=== PATIENT | female | born 2000 | race Caucasian/White ===

== ENCOUNTER 2024-05-15 09:25 | Inpatient (IN) | payer MEDICAID, SELFPAY ==
[2024-05-15] VITALS (19 sets, daily range): BP systolic 109–134; BP diastolic 64–89; PULSE 69–111; RESP 16; TEMP 35.8–36.6; O2SAT 97; BMI 29.7
[2024-05-15] MEDS: Lactated Ringers 1,000 ML 50 ML IV (09:30)
[2024-05-15 09:53] LABS: Absolute Lymphocyte Count 1.98 X10^3/uL (0.83-4.51); Absolute Neutrophil Count 8.1 X10^3/uL (2.0-7.7); Basophil# 0.03 X10^3/uL; Basophil% 0.3 % (0-1); Eosinophil# 0.03 X10^3/uL; Eosinophils% 0.3 % (0-5); Hematocrit 32.8 % (37-47); Lymphocyte # 1.98 X10^3/ul (0.83-4.51); Lymphocyte % 18.5 % (19-41); Mean Corp Hgb Conc 33.5 g/dL (32-36); Mean Corpuscular Hgb 27.8 pg (27.0-32.0); Mean Platelet Vol. 10.4 fl (6.2-12.0); Monocyte# 0.48 X10^3/uL; Monocyte% 4.5 % (0-10); NRBC Flagged by Analyzer 0 % (0-5); Neutrophil % 75.4 % (47-70); Platelet Count 278 K/mm3 (150-450); RBC Distribution Width CV 13.3 % (11.6-14.6); RBC Distribution Width SD 40.1 fl (35.1-43.9); Red Blood Count 3.95 M/mm3 (4.2-5.4); White Blood Count 10.7 K/mm3 (4.4-11.0)
[2024-05-15 10:46] LABS: Syphilis Antibodies Nonreactive (Nonreactive)
[2024-05-15] MEDS: Oxytocin 15 Units/NS 250ml 15 UNITS/250 ML IV.SOLN 2 UNITS IV (10:55)
[2024-05-15] MEDS: miSOPROStol 25 MCG TABLET PO ×2 (14:32→18:42)
--- NOTE | 2024-05-15 17:55 | PCM.HP.OB ---
HPI - General General Date of Admission: 05/15/24 Date of Service: 05/15/24 Chief Complaint: elective IOL HPI Narrative RASHAD MAGAÑA, is a 24 F who presents for an elective IOL. She offers no complaints. [facility] Medical History (Updated 05/15/24 @ 17:[address] Ofelia Cueva DO) Depression Anxiety Home Medications ?Medication ?Instructions ?Recorded ?Last Taken ?Type docosahexaenoic acid 200 mg 200 mg PO DAILY 05/15/24 05/13/24 History capsule ( DHA) Allergy/AdvReac Type Severity Reaction Status Date / Time No Known Allergies Allergy Verified 05/15/24 09:25 Surgical History (Updated 05/15/24 @ 10:02 by Joanna Schwarz) History of surgery Social History Smoking Status: Never smoker History Elective abortions Hx Para 0 Spontaneous abortions Hx # Term Pregnancies Ectopic pregnancies Hx # Pregnancies Multiple births # of living children NST FHR Rate Baby A Baseline: 130 Variability:: Moderate Accelerations:: 15 x 15 Decelerations:: None NST Reactive:: Yes Vital Signs Vital Signs Vital Signs: 05/15/24 08:20 05/15/24 08:20 05/15/24 08:20 Temperature 97.3 F L Temperature Source Tympanic Pulse Rate Respiratory Rate 16 Blood Pressure BP Systolic BP Diastolic Pulse Ox 05/15/24 08:22 05/15/24 08:22 05/15/24 08:23 Temperature Temperature Source Pulse Rate 96 94 Respiratory Rate Blood Pressure 111/74 BP Systolic 111 BP Diastolic 74 Pulse Ox 05/15/24 08:23 05/15/24 15:16 05/15/24 15:16 Temperature Temperature Source Pulse Rate 83 Respiratory Rate Blood Pressure 120/75 BP Systolic 120 BP Diastolic 75 Pulse Ox 97 05/15/24 15:17 05/15/24 15:17 05/15/24 15:17 Temperature 96.8 F L Temperature Source Temporal Pulse Rate Respiratory Rate 16 Blood Pressure BP Systolic BP Diastolic Pulse Ox 05/15/24 17:35 05/15/24 17:35 05/15/24 17:35 Temperature 96.5 F L Temperature Source Temporal Pulse Rate Respiratory Rate 16 Blood Pressure BP Systolic BP Diastolic Pulse Ox 05/15/24 17:36 05/15/24 17:36 Temperature Temperature Source Pulse Rate 69 Respiratory Rate Blood Pressure 119/70 BP Systolic 119 BP Diastolic 70 Pulse Ox Weight Weight: 168 lb Body Mass Index (BMI) 29.7 Labs Labs Labs: Blood Type A POSITIVE Antibody Screen NEGATIVE Hct 32.8 % (37-47) L Hgb 11.0 g/dL (12.0-15.0) L Syphilis Total Ab Nonreactive (Nonreactive) Assessment & Plan (1) 40 weeks gestation of : (2) Elective induction of labor planned: PLAN: Patient requests an elective IOL. Cervix 1/t/h, vertex on admission. Patient declines intracervical davenport. Cytotec 25 mcg PO q 4 hours ordered. Pitocin gtt 4 hours after second dose of Cytotec. Pelvis adequate and EFW < 4500 grams. Routine intrapartum care. Epidural PRN pain.
[2024-05-15] MEDS: Lactated Ringers 1,000 ML 200 ML IV (22:15)
[2024-05-15] MEDS: fentaNYL-bupivacaine (epidural) 100 ML BAG EPIDURAL (23:30)
[2024-05-16] VITALS (40 sets, daily range): BP systolic 92–141; BP diastolic 52–91; PULSE 65–182; RESP 15–18; TEMP 36–36.7; O2SAT 96–100
[2024-05-16] MEDS: Oxytocin 15 Units/NS 250ml 15 UNITS/250 ML IV.SOLN 2 UNITS IV (00:21)
[2024-05-16] MEDS: Lactated Ringers 1,000 ML 200 ML IV ×4 (03:20→22:05)
[2024-05-16] MEDS: fentaNYL-bupivacaine (epidural) 100 ML BAG EPIDURAL ×3 (05:35→17:33)
--- NOTE | 2024-05-16 09:30 | PCM.PN.BLA ---
Progress Note delayed entry: pt seen at bedside approx 7:35am- AROM performed /-3. resting comfortably with epidural. continue pitocin.
[2024-05-16] MEDS: LACTATED RINGERS 500 ML 999 ML IV ×2 (15:14→16:28)
[2024-05-16] MEDS: Lactated Ringers 1,000 ML 999 ML IV (20:00)
[2024-05-17] VITALS (43 sets, daily range): BP systolic 98–121; BP diastolic 54–69; PULSE 85–113; RESP 16; TEMP 36.4–37.2; O2SAT 94–100
[2024-05-17] MEDS: fentaNYL-bupivacaine (epidural) 100 ML BAG EPIDURAL (01:00)
[2024-05-17] MEDS: Lactated Ringers 1,000 ML 200 ML IV (03:07)
[2024-05-17] MEDS: Oxytocin 15 Units/NS 250ml 15 UNITS/250 ML IV.SOLN 334 UNITS IV (03:45)
--- NOTE | 2024-05-17 04:04 | EX.PCM.OBVAG ---
Assessment & Plan (1) (spontaneous vaginal delivery): Maternal Data Information Final FIFI: 05/12/24 Gestational age: 40+5 Vaginal Delivery Maternal Presentation Maternal Presentation: Elective Induction Type of Induction: Pitocin and Amniotomy Vaginal Delivery Information Procedure Performed: Spontaneous Vaginal Delivery Surgeon/Practitioner: Chiquita Macdonald Date of Procedure: 05/17/24 Pre-Procedure Diagnosis: Term Post-Procedure Diagnosis: Type of anesthesia: Epidural Estimated Blood Loss: 200 cc Time of Delivery: 03:44 Findings Description of procedure: Elective IOL. Declined Mcdermott bulb placement. Pitocin induction until 3 cm. AROM for clear fluid. Did not get adequate pain relief with epidural and insisted Pitocin be decreased. Once epidural was replaced and adequate, patient allowed administration of Pitocin and contractions became adequate. She quickly progressed to complete and began pushing. She pushed for about 1.5 hours and delivered MAGALI over an intact perineum. The anterior and posterior shoulders delivered easily followed by the rest body. The baby cried upon delivery. The cord was clamped and cut at one minute. The placenta delivered spontaneously. A second degree laceration was repaired with 2-0 Vicryl. All sponge and instrument counts were correct. Presentation: Vertex and MAGALI Amniotic Membrane Rupture Type: Artificial Amniotic Fluid Description: Clear Placental Delivery Description: Spontaneous Specimen collected: No Cord Vessel Description: 3 Vessels Cord Entanglement: None Infant A Gender: Female (1 minute): 9 (5 minute): 9 Delayed Cord Clamping: Yes Shift Coordinator economic development coordinator: No Post Vaginal Deli Medications given after delivery: IV Pitocin Episiotomy Description: None Laceration: Midline and 2nd degree Complication Complications: No
[2024-05-17] MEDS: Oxytocin 15 Units/NS 250ml 15 UNITS/250 ML IV.SOLN 83 UNITS IV (04:36)
[2024-05-17] MEDS: Benzocaine/Lanolin/Aloe Vera 85 GM Spray 1 SPRAY TOPICAL (14:16)
[2024-05-17] MEDS: Ibuprofen 600 MG Tablet PO (16:46)
[2024-05-17] MEDS: Acetaminophen 500 MG Tablet 1000 MG PO (20:27)
[2024-05-18 00:52] VITALS: BP 99/61; PULSE 86; O2SAT 97
[2024-05-18 00:53] VITALS: BP 99/61; PULSE 87; RESP 16; TEMP 36.9; O2SAT 98
[2024-05-18] MEDS: Acetaminophen 500 MG Tablet 1000 MG PO ×2 (02:13→08:22)
[2024-05-18 03:55] VITALS: BP 108/69; PULSE 78; PULSE 80; RESP 16; TEMP 36.5; O2SAT 99
[2024-05-18] MEDS: Ibuprofen 600 MG Tablet PO ×2 (03:59→10:42)
--- NOTE | 2024-05-18 07:44 | PCM.PN.OB ---
Subjective Subjective Doing well. Ambulating and voiding without difficulty. Mild lochia. Breast feeding. Objective Data Objective Data Vital Signs: Vital Signs Temp Pulse Resp BP Pulse Ox O2 Del Method 97.7 F L 78 16 108/69 99 Room Air 05/18/24 03:55 05/18/24 03:55 05/18/24 03:55 05/18/24 03:55 05/18/24 03:55 05/18/24 03:55 Oxygen Delivery Method Room Air Weight: 76.204 kg Body Mass Index (BMI) 29.7 Intake & Output: Intake and Output for Last 24 Hours 05/16/24 05/17/24 05/18/24 23:59 23:59 23:59 Intake Total 6109.90 / 6109.90 1735.50 / 1735.50 Output Total 2325 / 2325 1500 / 1500 Balance 3784.90 / 3784.90 235.50 / 235.50 Lab / Micro Data 05/15/24 09:45 ROS Constitutional Constitutional: Denies headache(s) Cardiovascular Cardiovascular: Denies chest pain or dyspnea Gastrointestinal Gastrointestinal: Denies nausea or vomiting Genitourinary Genitourinary: Denies dysuria Physical Exam Const alert, oriented x3 and no apparent distress General Appearance: cooperative and comfortable Eyes PERRL and EOMs intact bilaterally Resp normal respiratory effort GI soft to palpation and non-tender Uterus Palpation: uterus fundus firm ( below umbilicus) Extremity normal to inspection and full ROM Neuro oriented x3 and CN's II-XII intact bilaterally Psych mental status grossly normal Assessment & Plan (1) (spontaneous vaginal delivery): PLAN: Plan Discharge home
--- NOTE | 2024-05-18 07:45 | PCM.DC.SUM ---
Providers Date of Admission: 05/15/24 Date of Discharge: 05/18/24 Primary Care Physician: MP Calvert Reason For Visit: VAGINAL DELIVERY Diagnosis Discharge Diagnosis (1) (spontaneous vaginal delivery): Status: Acute Code(s): O80 - Encounter for full-term uncomplicated delivery Plan Discharge home Medications at Discharge Home Medications docosahexaenoic acid 200 mg capsule ( DHA) 200 mg PO DAILY 05/15/24 Hospital Course Operations None Procedures None Summary of Care Provided Minutes Spent on Discharge: 22 Hospital Course: IOL with . Uncomplicated coarse Physical Exam Const alert and no apparent distress Narrative: Fundus firm, below umbilicus. Weight / BMI Weight Weight: 76.204 kg Body Mass Index (BMI) 29.7 ABG / Lab / Microbiology Data 05/15/24 09:45 D/C Instructions Discharge Diet: No restrictions May resume sexual activity in: 6 weeks DC O2, CPAP, BIPAP Needs Home O2 Discharge instructions: No Please Follow Up With: Regi Bruce MD When: Follow up with our office in 1-2 and 6 weeks or as needed. [phone] Meaningful Use Info Meaningful Use Meaningful Use Diagnoses (Choose all that apply): None applicable Ischemic Stroke Statin Dosing Therapy Reference: STATIN DOSE THERAPY REFERENCE: * Patients > 75 years receive moderate or high dose statin therapy. * Patients 75 years or YOUNGER should receive HIGH intensity statin dose unless contraindicated. You will be required to document reason for non-treatment if statin daily dose does not meet guidelines. HIGH DOSE STATIN THERAPY DAILY Atorvastatin > than or = to 40 mg Rosuvastatin > than or = to 20 mg Amlodipine + Atorvastatin > than or = to 2.5/40 mg Ezetimibe + Simvastatin 10/80 mg Simvastatin 80mg Discharge Plan Admission Admit Date/Time: 05/15/24 09:25 Primary Reason for Your Visit: labor Attending Provider: Chiquita Macdonald Primary Care Provider: Sridevi Hernández Discharge Orders/Prescriptions Prescriptions: Continued DHA 200 mg capsule 200 mg PO DAILY Referrals / Follow Up: Sridevi Hernández NP-C [Primary Care Provider] - Disposition Disposition (needs filled in before D/C Order can be placed): Home, Self Care
[2024-05-18 08:09] VITALS: BP 106/68; PULSE 84
[2024-05-18 08:10] VITALS: PULSE 93; O2SAT 99
[2024-05-18 08:11] VITALS: BP 106/68; PULSE 90; RESP 16; TEMP 36.2; O2SAT 99
[2024-05-18] MEDS: Dibucaine 30 GM Tube 1 APPLIC TOPICAL (08:21)
[2024-05-18] MEDS: Benzocaine/Lanolin/Aloe Vera 85 GM Spray 1 SPRAY TOPICAL (08:21)
--- NOTE | 2024-05-18 13:40 | CASEMGMT ---
Social Work Assessment Labor and Delivery Unit Patient Address: [address] [place], [address],? [place] [address] Phone number: [phone] Date of Referral: 05/18/2024 Time of Referral: 11:45 Referred By: Chiquita Macdonlad Date of Intervention: ?04/20/2024 Time of Intervention: 13:40 Reason for Referral: Severe anxiety in labor and hx of IV drug use at the age of 18. History obtained from: Medical record review, mother of baby (MOB) and father of baby (FOB).? Household composition: MOB, FOB (Keanu Swan, age 24), their daughter Krys Stone, born on 05/17/2024 and ?s paternal grandmother (PGM). Patient's parent/guardian status: MOB and FOB have been together for almost 3 years (in June) and ? for almost 1 year (in June) . ??Both are actively involved and will be providing care for baby. MOB denied any concerns with domestic violence and described a positive and supportive relationship with the FOB. Medical History: : 1, Para, now 1. MOB received PNC through [facility] beginning at 8 weeks and 0 days. Other than a gap between 12 weeks-20 weeks, visits were observed to be routine. Apgars: 9 and 9. Weight: 6 lbs, 13oz. Relay Operator: Ariel Conteh in [place]. Educational Status: MOB and FOB denied any issues or concerns with reading or writing. Both MOB and FOB earned their High School Diploma. Financial Status: MOB and FOB reported their income is sufficient to meet the needs of their family at this time. MOB is going to be a [id number] mom and the FOB is employed full-time as an Manager Combination at a SNF. ? Supplies: MOB and FOB reported they have all the supplies they need for baby at this time including but not limited to: Car seat, bassinet, pack-n-play, crib, diapers, bottles, breast pump and clothing. Childcare/Caregiver(s):? MOB identified herself as the primary caregiver as a [facility] and the FOB will also help provide care during the times he is not working. ?s PGM also lives in the home who will be an added support for childcare/caregiver when needed. Transportation:? ROSEMARIE is a licensed flatbed driver and has a reliable vehicle to take baby to and from all medical appointments. DIMA does not yet have his flatbed driver?s license however has intentions of getting it in the near future. MOB and FOB denied any transportation issues. Programs/Agencies Involved: Current: Medicaid and Food stamps. ROSEMARIE also reported she has a [facility] appointment on 05/21/24. No other prior or current agency involvement at this time. Children Services/Legal Issues:? Denied. Behavioral Health Issues: ??Mental Health History: ?ROSEMARIE has a history of depression and anxiety and was noted to have ?severe? anxiety while in labor. ROSEMARIE reported that the delivery was traumatic as she wasn?t completely numb in certain areas, was panicked that she was feeling pain and ?afraid she was going to have to have an emergency . ?ROSEMARIE ?ended up having to have a second epidural and once ROSEMARIE had the second epidural, MOB reported her anxiety was much less and more managed. As far as anxiety and depression prior to delivery, ROSEMARIE reported she?s no longer on medication and described her depression and anxiety has very managed.? MOB stated she hasn?t had any problems with her mental health since 2021. DIMA denied any history of or current mental health issues. ?Substance Use History:? MOB denied any history of or current drug or alcohol abuse. The FOB has a history of IV drug abuse at the age of 18 following the of his father during the time the FOB was in High School. DIMA reported it was circumstantial and stated he?s been sober for 8 years and denied any current drug or alcohol use at all. ?Family History: MOB denied any mental health issues or drug or alcohol abuse issues on her side of the family.? DIMA denied any history of mental health issues on his side of the family however reported his siblings also abused drugs after his dad . DIMA reported not all of his siblings are his full siblings and the only sibling the FOB has contact with is his twin sister with whom the FOB is very close to. ??Drug Screens: ?None obtained at the time of this admission. ? Family/Social Stressors: ?MOB and FOB denied any current family or social stressors. Support Systems: Ample.? MOB identified her biggest supports as the FOB, newborns maternal grandmother (MGM), PGM, ?s paternal aunt, and ?s great-grandparents. Depression/Shaken Baby/Safe Sleeping: public welfare worker provided verbal and written education on PPD, Safe Sleeping and Shaken Baby.? Parents verbalized an understanding. ??? ASSESSMENT:? MOB and FOB provided consent to social work visit. Upon arrival, 2 of ?s maternal aunts were present, the PGM, MOB was sitting on the hospital bed and the FOB was sitting close-by on a chair. During the time of the assessment, everyone left the room to give MOB and FOB some privacy. MOB and FOB were both very cooperative, engaged and very excited to be parents. public welfare worker observed positive interaction between the MOB and FOB and both were very knowledgeable about ?s needs, feeding and verbalized how they have spent a lot of time preparing for and how to best support and one another in the home setting. FOB held throughout the assessment. Made sure ?s feet were covered, and had swaddled. Both MOB and FOB appeared to be very attentive and verbalized a strong support system. Both MOB and FOB appeared to be attached to and kept talking about how beautiful is. At the end of the assessment, protective services social worker requested to speak with the FOB alone which MOB and FOB were both agreeable to. MOB denied any previous or current DV with the FOB and reported feeling safe at home. MOB denied any unmanaged mental health concerns with either herself or the FOB and also denied any drug or alcohol abuse with either herself or the FOB. Safe Plan of Care for related to substance use: N/A; not needed. ? PLAN:? Baby to be discharged home when ready.? public welfare worker also provided written information on depression, depression resources and Help Me Grow as additional resources offered by protective services social worker which MOB and FOB accepted. No other services requested or indicated. Chiquita Fields, REAGENT TENDER HELPER, SISAL OPERATOR
--- NOTE | 2024-05-23 09:32 | NURSING ---
Follow up phone call made to preferred phone number listed, patient did not answer. LVM.
== END 2024-05-18 14:00 | disposition home or self-care (01) | DRG 560 ==
PROVIDERS: Admitting Provider Obstetrics & Gynecology; PCP Nurse Practitioner Family; Visit Provider Obstetrics & Gynecology
DX: O48.0 Post-term pregnancy (principal); Z37.0 Single live birth; O70.1 Second degree perineal laceration during delivery; Z3A.40 40 weeks gestation of pregnancy
CPT/HCPCS: 59025; 59050; 85025; 86780; 86850; 86900; 86901; 99221; G0378